=== PATIENT | female | born 1945 | race Caucasian/White ===

== ENCOUNTER → 2016-06-06 | Outpatient (CLI) | payer MEDICARE, BC ==
[~2016-06-06] MED LIST: AMOXICILLIN875 MG PO; BACTRIM DS 8001 TAB PO; CEFTIN500 MG PO; CIPRO 500MG TA500 MG PO; FLEXERIL 1010 MG/TAB PO; HCTZ12.5TAB PO; LORTAB 5/500 501 TAB PO; LOTENSIN40 MG PO; MOBIC 7.5MG7.5 MG PO; MOBIC15 MG PO; MOTRIN 800800 MG/TAB PO; NORCO 325 MG-51 TAB PO; NORCO 325 MG-7.1 TAB PO; PROMETHAZINE12.5 M5 PO; PYRIDIUM200 M1 PO; ULTRAM 50MG TAB50 MG PO; ZOCOR 20MG20 MG PO
== END ==
LOC: MC.RAD 09:03
DX: Z12.31 Encounter for screening mammogram for malignant neoplasm of breast (principal)

== ENCOUNTER → 2016-06-28 | Outpatient (CLI) | payer MEDICARE, BC | LOC: COL.RAD 10:41 | DX: N93.8 Other specified abnormal uterine and vaginal bleeding (principal) ==

== ENCOUNTER → 2016-07-08 | Outpatient (CLI) | payer MEDICARE, BC | LOC: COL.VAS 12:49 | DX: M25.475 Effusion, left foot (principal) ==

== ENCOUNTER → 2016-09-23 | Outpatient (CLI) | payer MEDICARE, BC | LOC: COL.RAD 10:56 | DX: M25.562 Pain in left knee (principal); M17.12 Unilateral primary osteoarthritis, left knee; M25.862 Other specified joint disorders, left knee; M70.52 Other bursitis of knee, left knee; M25.462 Effusion, left knee ==

== ENCOUNTER → 2017-07-08 | Outpatient (CLI) | payer MEDICARE, BC | LOC: MC.RAD 09:37 | DX: Z12.31 Encounter for screening mammogram for malignant neoplasm of breast (principal) ==

== ENCOUNTER → 2018-07-20 | Outpatient (CLI) | payer MEDICARE, BC | LOC: MC.RAD 12:59 | DX: Z12.31 Encounter for screening mammogram for malignant neoplasm of breast (principal) ==

== ENCOUNTER → 2019-12-23 | Outpatient (CLI) | payer MEDICARE, BC | LOC: MC.RAD 12:35 | DX: Z12.31 Encounter for screening mammogram for malignant neoplasm of breast (principal); Z78.0 Asymptomatic menopausal state ==

== ENCOUNTER → 2021-07-31 | Outpatient (CLI) | payer MEDICARE, BC | LOC: MC.RAD 10:32 | DX: Z12.31 Encounter for screening mammogram for malignant neoplasm of breast (principal) ==

== ENCOUNTER → 2023-08-26 | Outpatient (CLI) | payer MEDICARE, BC | LOC: MC.RAD 11:15 | DX: Z12.31 Encounter for screening mammogram for malignant neoplasm of breast (principal) ==